=== PATIENT | female | born 1995 | race Two or more races ===

== ENCOUNTER 2022-09-30 18:57 | Emergency (ER) | payer OTHER ==
[~2022-09-30] VITALS: Ht 170.2 cm; Wt 60.7 kg
[2022-09-30 19:04] VITALS: BP 113/78
[2022-09-30] MEDS ORDERED: HYDROcodone/acetaminophen 5mg/325mg tablet PO ONE (21:00)
[2022-09-30] MEDS ORDERED: amox tr/potassium clavulanate 875/125mg TAB PO ONE (21:00)
[2022-09-30] MEDS ORDERED: IBUP-1986 PO (21:10)
[2022-09-30] MEDS ORDERED: AMOX500C2 PO (21:10)
[2022-09-30] MEDS ORDERED: GABA300C PO (21:10)
[2022-09-30] MEDS ORDERED: ketorolac trometh. 30mg/ml inj. IM STA (21:23)
== END 2022-10-01 01:46 | disposition home or self-care (01) ==
LOC: ER 18:58
DX: K04.7 Periapical abscess without sinus (principal); K02.9 Dental caries, unspecified; F17.200 Nicotine dependence, unspecified, uncomplicated
CPT/HCPCS: 99283

== ENCOUNTER 2022-12-10 16:31 | Emergency (ER) | payer MEDICAID, OTHER ==
[~2022-12-10] VITALS: Ht 170.2 cm; Wt 54.5 kg
[~2022-12-10 16:31] MED LIST: GABA300C PO; IBUP-1986 PO
[2022-12-10 16:58] VITALS: TEMP 99.2
[2022-12-10 17:32] LABS: BASOPHILS % (AUTO) 0.3 % (0-1); EOSINOPHILS # (AUTO) 0.1 X10'3 (0-0.9); HEMATOCRIT 40.8 % (35.0-45.0); HEMOGLOBIN 13.7 g/dl (12.0-16.0); LYMPHOCYTES # (AUTO) 1.9 X10'3 (1.1-4.8); LYMPHOCYTES % (AUTO) 26.1 % (21-51); MEAN CORPUSCULAR HEMOGLOBIN 30.9 PG (27.0-31.0); MEAN CORPUSCULAR HGB CONC 33.6 g/dL (33.0-36.5); MEAN CORPUSCULAR VOLUME 92.1 FL (78-98); MEAN PLATELET VOLUME 8.9 FL (7.4-10.4); MONOCYTES # (AUTO) 0.6 X10'3 (0-0.9); MONOCYTES % (AUTO) 8.1 % (2-12); NEUTROPHILS # (AUTO) 4.8 X10'3 (1.8-7.7); NEUTROPHILS % (AUTO) 64.5 % (42-75); PLATELET COUNT 228 X10'3 (140-440); RED BLOOD COUNT 4.44 X10'6 (4.20-5.60); RED CELL DISTRIBUTION WIDTH 12.6 % (11.5-14.5); WHITE BLOOD COUNT 7.4 X10'3 (4.5-11.0)
[2022-12-10 17:33] LABS: BILIRUBIN,URINE NEGATIVE (Neg); CLARITY,URINE CLEAR (Clear); COLOR,URINE YELLOW (Yellow); GLUCOSE, URINE NEGATIVE (Neg); KETONES,URINE NEGATIVE (Neg); LEUKOCYTE ESTERASE ,URINE NEGATIVE (Neg); NITRITES, URINE NEGATIVE (Neg); OCCULT BLOOD,URINE NEGATIVE (Neg); PROTEIN,URINE NEGATIVE (Neg); UROBILINOGEN,URINE 0.2 E.U/dL (0.2-1.0)
[2022-12-10 17:37] LABS: UA COLLECTION TYPE CLN CATCH MIDSTREAM
[2022-12-10 17:42] LABS: URINE HCG NEGATIVE (NEG)
[2022-12-10 17:47] LABS: ALANINE AMINOTRANSFERASE 21 U/L (12-78); ALBUMIN 3.9 G/DL (3.4-5.0); ALBUMIN/GLOBULIN RATIO 1.1 (1.1-1.5); ALKALINE PHOSPHATASE 65 IU/L (46-116); ANION GAP 5 (8-16); ASPARTATE AMINO TRANSFERASE 15 U/L (10-37); BILIRUBIN,TOTAL 0.7 MG/DL (0.1-1.0); BLOOD UREA NITROGEN 11 MG/DL (7-18); BUN/CREATININE RATIO 14.1 (10.0-20.0); CALCIUM 9.1 MG/DL (8.5-10.1); CHLORIDE 104 MMOL/L (99-107); CREATININE 0.78 MG/DL (0.40-0.90); GLUCOSE 92 MG/DL (70-104); LIPASE 215 U/L (73-393); POTASSIUM 3.9 MMOL/L (3.5-5.1); SODIUM 137 MMOL/L (135-145); TOTAL CARBON DIOXIDE 27.9 MMOL/L (24-32); TOTAL PROTEIN 7.4 G/DL (6.4-8.2); eCRCL 92 ML/MIN; eGFR 88 ML/MIN
--- NOTE | 2022-12-10 18:59 | NUR ---
PT PRESENTS THE ER FOR ABDOMINAL CRAMPING AND NAUSEA. PT REPORTS SELF DIAGNOSING YEAST INFECTION OR BV. PT REPORTS BEING CONCERNED FOR STD.
--- NOTE | 2022-12-10 19:05 | NUR ---
PT REPORTS SLIGHT ODOR IN VAGINAL AREA, PT DENIES ABNORMAL DISCHARGE.
[2022-12-10 19:06] VITALS: BP 115/87; PULSE 90; RESP 16; O2SAT 98
[2022-12-10] MEDS ORDERED: NAPR-56 PO (19:48)
[2022-12-10] MEDS ORDERED: ONDA4TAB12 PO (19:48)
== END 2022-12-10 19:58 | disposition home or self-care (01) ==
LOC: ER 16:32
DX: R10.30 Lower abdominal pain, unspecified (principal); Z79.899 Other long term (current) drug therapy
CPT/HCPCS: 36415; 80053; 81003; 81025; 83690; 85025; 99283

== ENCOUNTER 2023-02-10 18:56 | Emergency (ER) | payer MEDICAID ==
[~2023-02-10] VITALS: Ht 172.7 cm; Wt 65.0 kg
[~2023-02-10 18:56] MED LIST changes: +ONDA4TAB12 PO
[2023-02-10 18:58] VITALS: BP 150/82; PULSE 110; RESP 18; TEMP 98.2; O2SAT 100
== END 2023-02-10 21:27 | disposition left against medical advice (07) ==
LOC: ER 18:56
DX: R06.02 Shortness of breath (principal); Z53.21 Procedure and treatment not carried out due to patient leaving prior to being seen by health care provider
CPT/HCPCS: 99281

== ENCOUNTER 2023-06-11 01:52 | Emergency (ER) | payer MEDICAID ==
[~2023-06-11] VITALS: Ht 172.7 cm; Wt 59.1 kg
[2023-06-11 01:54] VITALS: BP 129/80; PULSE 129; RESP 16; TEMP 97; O2SAT 99
[2023-06-11 02:17] LABS: BASOPHILS % (AUTO) 0.3 % (0-1); EOSINOPHILS # (AUTO) 0.1 X10'3 (0-0.9); EOSINOPHILS % (AUTO) 1.5 % (0-6); HEMATOCRIT 40.4 % (35.0-45.0); HEMOGLOBIN 13.7 g/dl (12.0-16.0); LYMPHOCYTES # (AUTO) 2.3 X10'3 (1.1-4.8); LYMPHOCYTES % (AUTO) 27.5 % (21-51); MEAN CORPUSCULAR HEMOGLOBIN 30.5 PG (27.0-31.0); MEAN CORPUSCULAR HGB CONC 33.9 g/dL (33.0-36.5); MEAN CORPUSCULAR VOLUME 89.9 FL (78-98); MEAN PLATELET VOLUME 8.9 FL (7.4-10.4); MONOCYTES # (AUTO) 0.7 X10'3 (0-0.9); MONOCYTES % (AUTO) 8.1 % (2-12); NEUTROPHILS # (AUTO) 5.3 X10'3 (1.8-7.7); NEUTROPHILS % (AUTO) 62.6 % (42-75); PLATELET COUNT 218 X10'3 (140-440); RED CELL DISTRIBUTION WIDTH 12.5 % (11.5-14.5); WHITE BLOOD COUNT 8.4 X10'3 (4.5-11.0)
[2023-06-11 02:31] LABS: ALANINE AMINOTRANSFERASE 19 U/L (12-78); ALBUMIN 3.6 G/DL (3.4-5.0); ALBUMIN/GLOBULIN RATIO 0.9 (1.1-1.5); ALKALINE PHOSPHATASE 63 IU/L (46-116); ANION GAP 8 (8-16); ASPARTATE AMINO TRANSFERASE 20 U/L (10-37); BILIRUBIN,TOTAL 0.5 MG/DL (0.1-1.0); BLOOD UREA NITROGEN 12 MG/DL (7-18); BUN/CREATININE RATIO 14.6 (10.0-20.0); CALCIUM 8.3 MG/DL (8.5-10.1); CHLORIDE 107 MMOL/L (99-107); CREATININE 0.82 MG/DL (0.40-0.90); GLUCOSE 114 MG/DL (70-104); LIPASE 63 U/L (16-77); POTASSIUM 3.8 MMOL/L (3.5-5.1); SODIUM 142 MMOL/L (135-145); TOTAL CARBON DIOXIDE 26.7 MMOL/L (24-32); TOTAL PROTEIN 7.4 G/DL (6.4-8.2); eCRCL 94 ML/MIN; eGFR 82 ML/MIN
== END 2023-06-11 04:30 | disposition left against medical advice (07) ==
LOC: ER 01:52
DX: R10.9 Unspecified abdominal pain (principal); R10.2 Pelvic and perineal pain; Z53.21 Procedure and treatment not carried out due to patient leaving prior to being seen by health care provider
CPT/HCPCS: 36415; 80053; 83690; 85025; 99281

== ENCOUNTER 2023-07-21 21:03 | Emergency (ER) | payer MEDICAID ==
[~2023-07-21] VITALS: Ht 170.2 cm; Wt 66.7 kg
[2023-07-21 21:18] VITALS: BP 126/79; PULSE 90; RESP 16; TEMP 98.4; O2SAT 99
[2023-07-21 22:19] LABS: BASOPHILS % (AUTO) 0.7 % (0-1); EOSINOPHILS # (AUTO) 0.1 X10'3 (0-0.9); HEMATOCRIT 40.5 % (35.0-45.0); HEMOGLOBIN 13.7 g/dl (12.0-16.0); LYMPHOCYTES # (AUTO) 1.7 X10'3 (1.1-4.8); LYMPHOCYTES % (AUTO) 29.7 % (21-51); MEAN CORPUSCULAR HEMOGLOBIN 30.5 PG (27.0-31.0); MEAN CORPUSCULAR HGB CONC 33.9 g/dL (33.0-36.5); MEAN PLATELET VOLUME 9.2 FL (7.4-10.4); MONOCYTES # (AUTO) 0.6 X10'3 (0-0.9); MONOCYTES % (AUTO) 9.6 % (2-12); NEUTROPHILS # (AUTO) 3.3 X10'3 (1.8-7.7); PLATELET COUNT 221 X10'3 (140-440); RED BLOOD COUNT 4.51 X10'6 (4.20-5.60); RED CELL DISTRIBUTION WIDTH 12.7 % (11.5-14.5); WHITE BLOOD COUNT 5.7 X10'3 (4.5-11.0)
[2023-07-21 22:34] LABS: ALANINE AMINOTRANSFERASE 14 U/L (12-78); ALBUMIN 3.5 G/DL (3.4-5.0); ALBUMIN/GLOBULIN RATIO 0.9 (1.1-1.5); ALKALINE PHOSPHATASE 62 IU/L (46-116); ANION GAP 2 (8-16); ASPARTATE AMINO TRANSFERASE 14 U/L (10-37); BILIRUBIN,TOTAL 0.3 MG/DL (0.1-1.0); BLOOD UREA NITROGEN 13 MG/DL (7-18); BUN/CREATININE RATIO 16.3 (10.0-20.0); CALCIUM 8.6 MG/DL (8.5-10.1); CHLORIDE 104 MMOL/L (99-107); GLUCOSE 90 MG/DL (70-104); LIPASE 74 U/L (16-77); POTASSIUM 3.6 MMOL/L (3.5-5.1); SODIUM 137 MMOL/L (135-145); TOTAL CARBON DIOXIDE 30.6 MMOL/L (24-32); TOTAL PROTEIN 7.3 G/DL (6.4-8.2); eCRCL 101 ML/MIN; eGFR 85 ML/MIN
[2023-07-21 22:55] LABS: BILIRUBIN,URINE NEGATIVE (Neg); CLARITY,URINE CLEAR (Clear); COLOR,URINE YELLOW (Yellow); GLUCOSE, URINE NEGATIVE (Neg); KETONES,URINE NEGATIVE (Neg); LEUKOCYTE ESTERASE ,URINE NEGATIVE (Neg); NITRITES, URINE NEGATIVE (Neg); OCCULT BLOOD,URINE NEGATIVE (Neg); PH,URINE 6.5 (4.8-8.0); PROTEIN,URINE NEGATIVE (Neg); UROBILINOGEN,URINE 0.2 E.U/dL (0.2-1.0)
[2023-07-21 22:58] LABS: URINE HCG NEGATIVE (NEG)
[2023-07-21 22:59] LABS: UA COLLECTION TYPE CLN CATCH MIDSTREAM
== END 2023-07-22 02:30 | disposition left against medical advice (07) ==
LOC: ER 21:03
DX: R10.9 Unspecified abdominal pain (principal); Z53.21 Procedure and treatment not carried out due to patient leaving prior to being seen by health care provider
CPT/HCPCS: 36415; 80053; 81003; 81025; 83690; 85025; 99281

== ENCOUNTER 2023-08-10 13:14 | Emergency (ER) | payer MEDICAID ==
[~2023-08-10] VITALS: Ht 152.4 cm; Wt 66.7 kg
[2023-08-10 13:24] VITALS: BP 103/68; PULSE 95; RESP 18; TEMP 97.8; O2SAT 98
[2023-08-10] MEDS ORDERED: CEPH-585 PO (14:37)
[2023-08-10] MEDS ORDERED: SULF1TAB49 PO (14:37)
== END 2023-08-10 14:48 | disposition home or self-care (01) ==
LOC: ER 13:15
DX: N61.0 Mastitis without abscess (principal); Z88.1 Allergy status to other antibiotic agents; Z79.899 Other long term (current) drug therapy; Z79.1 Long term (current) use of non-steroidal anti-inflammatories (NSAID)
CPT/HCPCS: 99283

== ENCOUNTER 2023-09-23 19:50 | Emergency (ER) | payer MEDICAID ==
[~2023-09-23] VITALS: Ht 172.7 cm; Wt 61.4 kg
[~2023-09-23 19:50] MED LIST changes: +CEPH-585 PO
[2023-09-23 22:50] VITALS: BP 97/58; PULSE 87; RESP 16; TEMP 98; O2SAT 98
== END 2023-09-23 22:52 | disposition home or self-care (01) ==
LOC: ER 19:51
DX: J20.9 Acute bronchitis, unspecified (principal); Z88.1 Allergy status to other antibiotic agents; Z79.1 Long term (current) use of non-steroidal anti-inflammatories (NSAID); Z79.2 Long term (current) use of antibiotics; Z79.899 Other long term (current) drug therapy
CPT/HCPCS: 71045; 87502; 87503; 99284

== ENCOUNTER 2023-09-24 19:14 | Emergency (ER) | payer MEDICAID ==
[~2023-09-24] VITALS: Ht 172.7 cm; Wt 59.1 kg
[2023-09-24 19:32] VITALS: BP 131/80; PULSE 116; RESP 19; TEMP 98; O2SAT 98
== END 2023-09-24 21:50 | disposition left against medical advice (07) ==
LOC: ER 19:15
DX: R00.2 Palpitations (principal); R07.89 Other chest pain; R06.02 Shortness of breath; Z53.21 Procedure and treatment not carried out due to patient leaving prior to being seen by health care provider
CPT/HCPCS: 93005